=== PATIENT | female | born 1945 | race Caucasian/White ===

== ENCOUNTER 2016-11-23 09:30 | Inpatient (IN) | payer OTHER, MEDICARE ==
[~2016-11-23] VITALS: Ht 162.6 cm; Wt 80.9 kg
[~2016-11-23 09:30] MED LIST: REMOVE OLD PATCH TD SCH
[2016-11-27] MEDS ORDERED: LEVO25TA4 PO (16:45)
[2016-11-27] MEDS ORDERED: RANI150T PO (16:45)
[2016-11-27] MEDS ORDERED: DIAZ10TA PO (16:45)
[2016-11-27] MEDS ORDERED: NIFE60TA58 PO (16:45)
[2016-11-27] MEDS ORDERED: LOSA50TA PO (16:45)
[2016-11-29] MEDS ORDERED: TOPR50TA PO (11:48)
[2016-11-29] MEDS ORDERED: CYCL1TAB29 PO (11:49)
[2016-11-29] MEDS ORDERED: HYDR-3583 PO (11:49)
[2016-11-29] MEDS ORDERED: VIVE0.1D T-DERMAL (11:50)
[2016-11-29] MEDS ORDERED: WELC625T2 PO (11:52)
[2016-11-29] MEDS ORDERED: CLON0.1T PO (11:52)
[2016-11-30] MEDS ORDERED: PROPOFOL 200 MG/20 ML AMP IV ONE (10:36)
[2016-11-30] MEDS ORDERED: NEOSTIGMINE 3 MG/3 ML SYR IV ONE (10:36)
[2016-11-30] MEDS ORDERED: LACTATED RINGER'S 1000 ML INJ 1,000 ML IV ONE (10:36)
[2016-11-30] MEDS ORDERED: ONDANSETRON HCL 4 MG/2 ML VIAL IV PUSH ONE (10:36)
[2016-11-30] MEDS ORDERED: ceFAZolin 2 GM PREMIX 50 ML ONE (11:42)
[2016-11-30] MEDS ORDERED: METOPROLOL TARTRATE 25 MG TAB PO PRN (11:45)
[2016-11-30] MEDS ORDERED: INSULIN HUMAN REGULAR 1,000 UNITS/10 ML VIAL SQ PRN (11:45)
[2016-11-30] MEDS ORDERED: SODIUM CHLORID 0.9% 500 ML IV SCH (12:00)
[2016-11-30] MEDS: LACTATED RINGER'S 1000 ML IV SCH (12:00)
[2016-11-30] MEDS: POVIDONE IODINE 7.5% SCRUB 118 ML BOTTLE TOP SCH (12:00)
[2016-11-30] MEDS ORDERED: ceFAZolin 2 GM PREMIX 50 ML IV SCH (12:00)
[2016-11-30] MEDS ORDERED: MIDAZOLAM HCL 5 MG/5 ML VIAL ONE (12:19)
[2016-11-30] MEDS ORDERED: BUPIVACAINE HCL PF 0.25% 30 ML VIAL NB ONE (12:23)
[2016-11-30] MEDS ORDERED: BUPIVACAINE HCL PF 0.5% 30 ML VIAL NB ONE (12:23)
[2016-11-30] MEDS ORDERED: DEXAMETHASONE SOD PHOS PF 10 MG/ML VIAL IV ONE (12:23)
[2016-11-30] MEDS ORDERED: GENTAMICIN SULFATE 80 MG/2 ML VIAL ONE (12:33)
[2016-11-30] MEDS: DEXAMETHASONE SOD PHOS 4 MG/ML VIAL ONE ×2 (12:37→14:13)
[2016-11-30] MEDS ORDERED: fentaNYL CITRATE 250 MCG/5 ML AMP ONE (13:13)
[2016-11-30] MEDS ORDERED: BUPIVACAINE HCL PF 0.25% 30 ML VIAL ONE (13:51)
[2016-11-30] MEDS ORDERED: DEXAMETHASONE SOD PHOS 4 MG/ML VIAL ONE (13:53)
[2016-11-30] MEDS ORDERED: GENTAMICIN SULFATE 80 MG/2 ML VIAL IRRIGATION ONE (14:13)
[2016-11-30] MEDS ORDERED: *MEPERIDINE 25 MG INJ VIAL PERIprocedural Use ONLY ONE (15:57)
[2016-11-30] MEDS ORDERED: TEMAZEPAM 15 MG CAP PO PRN (16:00)
[2016-11-30] MEDS ORDERED: NALOXONE HCL 0.4 MG/ML AMP IV PRN ×2 (16:00)
[2016-11-30] MEDS ORDERED: POVIDONE IODINE 10% SOLN 118 ML BOTTLE TOPICAL PRN (16:00)
[2016-11-30] MEDS ORDERED: Post-op Orders (for Pharmacy) MISC XX ONE (16:00)
[2016-11-30] MEDS ORDERED: ONDANSETRON HCL 4 MG/2 ML VIAL IVP PRN (16:00)
[2016-11-30] MEDS ORDERED: SODIUM CHLORIDE 0.9% FLUSH 5 ML FLUSH IVF PRN (16:00)
[2016-11-30] MEDS ORDERED: ACETAMINOPHEN 325 MG TAB PO PRN (16:00)
[2016-11-30] MEDS ORDERED: *HYDROmorphone PF 1 MG VIAL PERIprocedural Use ONLY ONE (16:01)
[2016-11-30] MEDS ORDERED: HYDROmorphone HCL PF 1 MG/ML VIAL IV PUSH PRN (16:30)
--- NOTE | 2016-11-30 16:37 | RADRPT ---
EXAM DATE/TIME: 11/30/2016 16:10 [place] COMPARISON: FLUOROSCOPY PORTABLE UP TO 1HR, October 26, 2014, 0:00. INDICATIONS : Post op right knee surgery. MEDICAL HISTORY : None. SURGICAL HISTORY : None. ENCOUNTER: Initial ACUITY: 1 day PAIN SCORE: 0/10 LOCATION: Right Knee. FINDINGS: Two view examination of the left knee demonstrates no evidence of fracture or dislocation. The postsu rgical changes related to total knee arthroplasty. Bony mineralization is normal. The suprapatellar soft tissues have a normal configuration. CONCLUSION: Status post total left knee arthroplasty. Alignment of the prosthesis. No complicatin g features are seen. Nancy Landaverde MD on November 30, 2016 at 16:35 Board Certified Radiologist. This report was verified electronically.
[2016-11-30 16:48] LABS: HEMATOCRIT 35.1 % (35.0-46.0); REVIEW FLAG FINAL
[2016-11-30 17:02] VITALS: BP 137/78; PULSE 70; RESP 16; TEMP 97.9; O2SAT 98
[2016-11-30] MEDS: diphenhydrAMINE HCL 25 MG CAP PO PRN ×2 (18:03→23:39)
[2016-11-30] MEDS ORDERED: cloNIDine HCL 0.1 MG TAB PO PRN (18:15)
--- NOTE | 2016-11-30 18:27 | PD.CONS ---
HPI Service [facility] Consult Requested By Dr. Vasquez Reason for Consult Medical management Primary Care Physician Rebekah Le DO Diagnoses: (1) HTN (hypertension) History of Present Illness Patient is a pleasant 71-year-old white female with primary medical history of hypertension, GERD, back pain, neck pain, depression, hypothyroidism, renal stenosis who came in for surgery. Patient is status post left total knee replacement today. Consulted for medical management. Patient seen. Reports she is doing well, minor discomfort otherwise "really feeling fine." Confirmed previous medical history and added reports that she has renal stenosis, some ischemic stroke previously, and also blocked carotid arteries 51%, 30%. Complains of mild itching. Requesting for Benadryl. Denies SOB/ dyspnea. Denies chestpain, palpitations, headaches, dizziness. Denies fevers, chills, n/v /d. Review of Systems Constitutional: DENIES: Fever, Chills, Change in appetite Endocrine: DENIES: Heat/cold intolerance Eyes: DENIES: Blurred vision, Eye pain Other Negative except for what is noted on history of present illness. Past Family Social History Allergies: Coded Allergies: Morphine (Verified Allergy, Severe, itching, 11/30/16) Codeine (Verified Allergy, Unknown, 11/30/16) Ultram (Verified Allergy, Unknown, 11/30/16) Vistaril (Verified Allergy, Unknown, 11/30/16) Past Medical History HTN GERD Back pain Neck pain Depression Hypothyroidism Renal stenosis Ischemic strokes Carotid artery stenosis Past Surgical History Cardiac catheter Total hysterectomy Spinal fusions Cervical fusion Reported Medications Losartan 50 mg twice a day Diazepam 10 mg when necessary Metoprolol 50 mg ER twice a day WelChol 3750 mg daily Clonidine 2.5 mg when necessary for greater than 160 SBP Flexeril 10 mg 3 times a day when necessary Nifedipine ER 60 mg by mouth twice a day Estradiol 0.1 mg every 24 hours patch Zantac 150 milligrams daily Levothyroxine 25 mg daily Hydrocodone acetaminophen 10/325 milligrams 1 tab every 6 hours when necessary Active Ordered Medications Current Medications Medications (Trade) Dose Ordered Sig/Vannessa Route Start Time Stop Time Status Last Admin Lactated Ringer's 1,000 ml @ 30 mls/hr Q24H IV 11/30/16 12:00 11/30/16 12:00 (NS 500 ml Inj) 500 ml @ 30 mls/hr [id number] IV 11/30/16 12:00 12/01/16 11:59 (Betadine 7.5% Scrub) 1 applic ONCE TOP 11/30/16 12:00 12/03/16 11:59 (NS Flush) 2 ml UNSCH PRN IVF 11/30/16 16:00 IV Flush 2 ml 2 ml BID IVF 11/30/16 21:00 (Ancef Inj/NS Inj) 100 ml @ 200 mls/hr Q6H IV 11/30/16 18:00 12/01/16 06:29 (Lovenox Inj) 40 mg Q24H SQ 12/01/16 04:00 (Dilaudid Pf Inj) 0.5 mg Q3H PRN IV PUSH 11/30/16 16:30 ([place] 7.5-325 Mg) 1 tab Q4H PRN PO 11/30/16 16:00 (Theragran M Tab) 1 tab BID PO 12/01/16 21:00 01/30/17 20:59 (Zofran Inj) 4 mg Q6H PRN IVP 11/30/16 16:00 (Restoril) 15 mg HS PRN PO 11/30/16 16:00 (Narcan Inj) 0.4 mg UNSCH PRN IV 11/30/16 16:00 (Dilaudid TELERADIOLOGIST Inj) 6 mg UNSCH IV 11/30/16 16:00 TELERADIOLOGIST Dosage Infused (Pha) 1 Q8HR OTHER 11/30/16 22:00 (Benadryl) 25 mg Q6H PRN PO 11/30/16 18:00 UNV Family History Heart disease Father of stroke Mother of heart attack in her 70s Social History Denies alcohol use Former smoker quit 9 years ago, smokes occasionally 1 to 3 cigarettes, last time she smoked was a week ago Denies illicit drug use Physical Exam Vital Signs Vital Signs Date Time Temp Pulse Resp B/P Pulse Ox O2 Delivery O2 Flow Rate FiO2 11/30/16 17:02 97.9 70 16 137/78 98 11/30/16 16:30 65 16 142/73 96 Nasal Cannula 2 11/30/16 16:15 59 16 150/65 95 Nasal Cannula 2 11/30/16 16:00 61 16 171/63 99 Nasal Cannula 2 11/30/16 15:55 98.4 85 16 181/72 99 Nasal Cannula 2 Physical Exam GENERAL: This is a well-nourished, well-developed patient, in no apparent distress. SKIN: No rashes, ecchymoses or lesions. Cool and dry. HEAD: Atraumatic. Normocephalic. No temporal or scalp tenderness. EYES: Pupils equal round and reactive. Extraocular motions intact. No scleral icterus. No injection or drainage. ENT: Nose without bleeding. Throat without erythema. Uvula midline. Airway patent. NECK: Trachea midline. No JVD or lymphadenopathy. Supple. CARDIOVASCULAR: Regular rate and rhythm without murmurs, gallops, or rubs. RESPIRATORY: Clear to auscultation. Breath sounds equal bilaterally. No wheezes , rales, or rhonchi. GASTROINTESTINAL: Abdomen soft, non-tender, nondistended. Bowel sounds hypoactive 4. MUSCULOSKELETAL: Extremities without clubbing, cyanosis, left lower extremity trace edema. Left knee Alessandro wrap in place, autotransfusion drain serous blood approx 100ml, left leg on CPM machine. NEUROLOGICAL: Awake and alert. Oriented 3. Motor and sensory grossly within normal limits. No focal neuro deficit. Normal speech. Laboratory Laboratory Tests Test 11/30/16 11/30/16 11:55 16:38 Blood Type O POSITIVE Antibody Screen NEGATIVE Crossmatch Leukocyte-Reduced Red Blood Cells Blood Bank Comment Hemoglobin 12.0 Hematocrit 35.1 Result Diagram: 11/30/16 1638 Imaging Last Impressions Knee X-Ray 11/30/16 0000 Signed Impressions: Service Date/Time: Wednesday, November 30, 2016 16:10 - CONCLUSION: Status post total left knee arthroplasty. Alignment of the prosthesis. No complicating features are seen. Nancy Landaverde MD Assessment and Plan Problem List: (1) HTN (hypertension) ICD Code: I10 Status: Acute (2) Hypothyroidism ICD Code: E03.9 Status: Acute (3) GERD (gastroesophageal reflux disease) ICD Code: K21.9 Status: Acute Assessment and Plan Patient is a pleasant 71-year-old white female with primary medical history of hypertension, GERD, back pain, neck pain, depression, hypothyroidism, renal stenosis who came in for surgery. Patient is status post left total knee replacement 11/30/15. Consulted for medical management. Status post left knee replacement - managed by Orthopedic service - Pain management - TELERADIOLOGIST - Physical therapy by primary team HTN - Will restart some of the patient's home meds - Will continue losartan 50mg twice a day, and clonidine when necessary for now, will check if BP trend if metoprolol 50 mg twice a day, nifedipine 60 mg twice a day can be restarted. Recent BP 137/78 - Monitor BP trend - Baseline BMP within normal. Will recheck tomorrow. Hypothyroidism - continue levothyroxine 25 mcg daily GERD - restart Zantac Itching - Benadryl when necessary DVT prop Lovenox Thank you for this consultation. We will follow patient with you. Written by Morena Rockwell, acting as scribe for Dr. Torres on 11/30/16 at 17: 58. patient was seen and examined today. s/p left total knee replacement. continue with post-op care. will monitor BP and adjust the regimen as needed. rest of assessment and plan as noted above. Code Status Full code Discussed Condition With Patient, nursing. Morena Bullard Nov 30, 2016 18:27 Rosy Prado MD Nov 30, 2016 18:35
[2016-11-30] MEDS ORDERED: PILL SPLITTER OTHER PRN (19:15)
[2016-11-30] MEDS: COLESEVELAM HCL 625 MG TAB PO SCH (20:00)
[2016-11-30 20:18] VITALS: BP 132/62; PULSE 66; RESP 16; TEMP 95.7; O2SAT 98
[2016-11-30] MEDS: FAMOTIDINE 20 MG TAB PO SCH (20:40)
[2016-11-30] MEDS: LOSARTAN 50 MG TAB PO SCH (20:40)
[2016-11-30] MEDS: SODIUM CHLORIDE 0.9% FLUSH 5 ML FLUSH IVF SCH (20:41)
[2016-11-30] MEDS: PCA - TOTAL MG DILAUDID DELIVERED PER SHIFT OTHER SCH (22:00)
[2016-11-30] MEDS ORDERED: PCA - TOTAL MG MORPHINE DELIVERED PER SHIFT SCH (22:00)
[2016-11-30 23:45] VITALS: BP 180/74
[2016-11-30] MEDS: cloNIDine HCL 0.1 MG TAB PO PRN (23:50)
[2016-12-01] VITALS (9 sets, daily range): BP systolic 133–169; BP diastolic 63–74; PULSE 69–96; RESP 16–18; TEMP 96.2–99.6; O2SAT 95–98
[2016-12-01] MEDS: ENOXAPARIN SODIUM 40 MG/0.4 ML SYRINGE SQ SCH (04:09)
[2016-12-01] MEDS: LEVOTHYROXINE SODIUM 25 MCG TAB PO SCH (04:09)
[2016-12-01] MEDS: diphenhydrAMINE HCL 25 MG CAP PO PRN ×3 (05:14→22:51)
[2016-12-01] MEDS: PCA - TOTAL MG DILAUDID DELIVERED PER SHIFT OTHER SCH ×2 (07:27→20:46)
[2016-12-01 08:04] LABS: BICARBONATE 26.8 MEQ/L (21.0-32.0)
[2016-12-01 08:09] LABS: POTASSIUM 4.8 MEQ/L (3.5-5.1)
[2016-12-01] MEDS: SODIUM CHLORIDE 0.9% FLUSH 5 ML FLUSH IVF SCH ×2 (09:00→20:43)
[2016-12-01] MEDS: FAMOTIDINE 20 MG TAB PO SCH ×2 (09:20→20:41)
[2016-12-01] MEDS: LOSARTAN 50 MG TAB PO SCH ×2 (09:20→20:42)
[2016-12-01] MEDS: COLESEVELAM HCL 625 MG TAB PO SCH (09:21)
[2016-12-01] MEDS: HYDROmorphone HCL PCA 6 MG/30 ML IV SCH (09:33)
--- NOTE | 2016-12-01 11:23 | HHI.PR ---
Subjective Remarks in no distress. pain is fairly controlled. no other new complaints. Objective Vitals Vital Signs Date Time Temp Pulse Resp B/P Pulse Ox O2 Delivery O2 Flow Rate FiO2 12/01/16 10:50 98 Partial Rebreather 15.00 12/01/16 10:41 98 21 12/01/16 09:33 15 12/01/16 08:00 97.8 80 16 133/63 95 12/01/16 07:27 20 12/01/16 05:06 96 21 12/01/16 04:17 97.5 71 16 144/67 97 12/01/16 00:10 96.2 69 17 96 11/30/16 23:45 180/74 11/30/16 22:00 20 11/30/16 20:18 95.7 66 16 132/62 98 11/30/16 17:02 97.9 70 16 137/78 98 11/30/16 16:30 65 16 142/73 96 Nasal Cannula 2 11/30/16 16:15 59 16 150/65 95 Nasal Cannula 2 11/30/16 16:00 61 16 171/63 99 Nasal Cannula 2 11/30/16 15:55 98.4 85 16 181/72 99 Nasal Cannula 2 I/O 11/30/16 11/30/16 11/30/16 12/01/16 12/01/16 12/01/16 07:00 15:00 23:00 07:00 15:00 23:00 Intake Total 2833 ml 720 ml Output Total 300 ml Balance 2533 ml 720 ml Intake Oral 720 ml 720 ml IV Total 763 ml Other 1350 ml Output Drainage Total 200 ml Estimated Blood Loss 100 ml Other 0 ml # Voids 1 2 # Bowel Movements 0 0 Result Diagram: 11/30/16 1638 12/01/16 0622 Imaging Last Impressions Knee X-Ray 11/30/16 0000 Signed Impressions: Service Date/Time: Wednesday, November 30, 2016 16:10 - CONCLUSION: Status post total left knee arthroplasty. Alignment of the prosthesis. No complicating features are seen. Nancy Landaverde MD Objective Remarks GENERAL: This is a well-nourished, well-developed patient, in no apparent distress. CARDIOVASCULAR: Regular rate and regular rhythm without murmurs, gallops, or rubs. RESPIRATORY: Clear to auscultation. Breath sounds equal bilaterally. No wheezes , rales, or rhonchi. GASTROINTESTINAL: Abdomen soft, non-tender, nondistended. Normal, active bowel sounds MUSCULOSKELETAL:left knee covered with clean dressing. NEURO: Alert & Oriented x4 to person, place, time, situation. Moves all ext x4 Medications and IVs Current Medications Lactated Ringer's 1,000 ml @ 30 mls/hr Q24H IV Last administered on 11/30/16 12:00; Start 11/30/16 at 12:00 Sodium Chloride (NS 500 ml Inj) 500 ml @ 30 mls/hr [id number] IV ; Start 11/30/16 at 12:00; Stop 12/01/16 at 11:59 Insulin Human Regular (NovoLIN R INJ) See Protocol Table ... UNSCH X1 PRN SQ SEE PROTOCOL; Start 11/30/16 at 11:45; Stop 12/01/16 at 11:44 Metoprolol Tartrate 25 mg 25 mg UNSCH X1 PRN PO SEE LABEL COMMENTS; Start 11/30 at 11:45; Stop 12/01/16 at 11:44 Cefazolin Sodium/ Dextrose (Ancef 2 Gm Premix) 50 ml @ As Directed STK-MED ONCE .ROUTE Last administered on 11/30/16 12:02; Start 11/30/16 at 11:42; Stop at 11:43; Status DC Povidone Iodine 1 applic 1 applic ONCE TOP ; Start 11/30/16 at 12:00; Stop 12/03 at 11:59 Cefazolin Sodium/ Dextrose (Ancef 2 Gm Premix) 50 ml @ 100 mls/hr REFRACTORY REPAIRER IV ; Start 11/30/16 at 12:00; Stop 12/03/16 at 11:59 Midazolam HCl (Versed Inj) 10 mg STK-MED ONCE .ROUTE Last administered on 12:29; Start 11/30/16 at 12:19; Stop 11/30/16 at 12:20; Status DC Dexamethasone Sodium Phosphate (Decadron Inj) 4 mg STK-MED ONCE .ROUTE Last administered on 11/30/16 14:13; Start 11/30/16 at 12:19; Stop 11/30/16 at 12:20 ; Status DC Gentamicin Sulfate (Gentamicin Inj) 240 mg STK-MED ONCE .ROUTE ; Start 11/30/16 at 12:33; Stop 11/30/16 at 12:34; Status DC Fentanyl Citrate (fentaNYL INJ) 250 mcg STK-MED ONCE .ROUTE ; Start 11/30/16 at 13:13; Stop 11/30/16 at 13:14; Status DC Bupivacaine HCl (Marcaine Pf 0.25% Inj) 30 ml STK-MED ONCE .ROUTE Last administered on 11/30/16 14:23; Start 11/30/16 at 13:51; Stop 11/30/16 at 13:52 ; Status DC Dexamethasone Sodium Phosphate (Decadron Inj) 4 mg STK-MED ONCE .ROUTE ; Start 11/30/16 at 13:53; Stop 11/30/16 at 13:54; Status DC Gentamicin Sulfate (Gentamicin Inj) 240 mg STK-MED ONCE IRRIGATION Last administered on 11/30/16 14:13; Start 11/30/16 at 14:13; Stop 11/30/16 at 14:27 ; Status DC Meperidine HCl (*DEMEROL INJ PERIprocedural ONLY) 25 mg STK-MED ONCE .ROUTE Last administered on 11/30/16 15:57; Start 11/30/16 at 15:57; Stop 11/30/16 at 15:58; Status DC Hydromorphone HCl (*DILAUDID PF INJ PERIprocedural ONLY) 1 mg STK-MED ONCE .ROUTE Last administered on 11/30/16 16:01; Start 11/30/16 at 16:01; Stop at 16:02; Status DC IV Flush (NS Flush) 2 ml UNSCH PRN IVF FLUSH AFTER USING IV ACCESS; Start 11/30 at 16:00 IV Flush 2 ml 2 ml BID IVF Last administered on 11/30/16 20:41; Start at 21:00 Cefazolin Sodium/ Sodium Chloride (Ancef Inj/NS Inj) 100 ml @ 200 mls/hr Q6H IV Last administered on 12/01/16 04:09; Start 11/30/16 at 18:00; Stop at 06:29; Status DC Miscellaneous Information (Post-op Orders (for Pharmacy)) STAT ONCE XX ; Start 11/30/16 at 16:00; Stop 11/30/16 at 16:39; Status DC Enoxaparin Sodium (Lovenox Inj) 40 mg Q24H SQ Last administered on 12/01/16 04 :09; Start 12/01/16 at 04:00 Hydromorphone HCl (Dilaudid Pf Inj) 0.5 mg Q3H PRN IV PUSH PAIN GREATER THAN 7 ; Start 11/30/16 at 16:30 Acetaminophen/ Hydrocodone Bitart ([place]ard 7.5-325 Mg) 1 tab Q4H PRN PO PAIN SCALE 1 TO 10; Start 11/30/16 at 16:00 Acetaminophen (Tylenol) 650 mg Q6H PRN PO PAIN LESS THAN 5 ON SCALE; Start at 16:00; Status UNV Multivitamins/ Minerals Therapeutic (Theragran M Tab) 1 tab BID PO ; Start 12/01 at 21:00; Stop 01/30/17 at 20:59 Ondansetron HCl (Zofran Inj) 4 mg Q6H PRN IVP NAUSEA OR VOMITING; Start at 16:00 Temazepam (Restoril) 15 mg HS PRN PO SLEEP; Start 11/30/16 at 16:00 Povidone Iodine (Betadine 10% Top Soln) 1 applic UNSCH X1 PRN TOPICAL WOUND CARE; Start 11/30/16 at 16:00; Stop 12/02/16 at 15:59 Naloxone HCl (Narcan Inj) 0.4 mg UNSCH PRN IV RESPIRATORY RATE LESS THAN 10; Start 11/30/16 at 16:00; Stop 11/30/16 at 16:16; Status DC MEN[employer]S [employer] BO[employer] SALESPERSON Dosage Infused (Pha) 1 Q8HR .XX ; Start 11/30/16 at 22:00; Status UNV Naloxone HCl (Narcan Inj) 0.4 mg UNSCH PRN IV RESPIRATORY RATE LESS THAN 10; Start 11/30/16 at 16:00 Hydromorphone HCl (Dilaudid [employer] BO[employer] SALESPERSON Inj) 6 mg UNSCH IV Last administered on 09:33; Start 11/30/16 at 16:00 M[employer]S [employer] BO[employer]OTH[employer] SALESPERSON Dosage Infused (Pha) 1 Q8HR OTHER Last administered on 12/01/16 07:27; Start 11/30/16 at 22:00 Diphenhydramine HCl (Benadryl) 25 mg Q6H PRN PO ITCHING Last administered on 09:28; Start 11/30/16 at 18:00 Clonidine (Catapres) 0.1 mg DAILY PRN PO BPM; Start 11/30/16 at 18:15; Stop at 19:15; Status DC Colesevelam HCl (Welchol) 3,750 mg DAILY@1000 PO Last administered on 09:21; Start 11/30/16 at 20:00 Levothyroxine Sodium (Synthroid) 25 mcg DAILY@06 PO Last administered on 04:09; Start 12/01/16 at 06:00 Losartan Potassium (Cozaar) 50 mg BID PO Last administered on 12/01/16 09:20; Start 11/30/16 at 21:00 Famotidine (Pepcid) 10 mg BID PO Last administered on 12/01/16 09:20; Start at 21:00 Clonidine (Catapres) 0.1 mg Q8HR PRN PO SBP> 180 OR DBP > 100 Last administered on 11/30/16 23:50; Start 11/30/16 at 22:00 Miscellaneous (Pill Splitter) 1 ea UNSCH PRN OTHER SEE LABEL COMMENTS; Start at 19:15 A/P Assessment and Plan Status post left knee replacement - managed by Orthopedic service - Pain management - - Physical therapy by primary team HTN - Will restart some of the patient's home meds - Will continue losartan 50mg twice a day, and clonidine when necessary for now- will resume her BB at a lower dose. - continue to monitor BP and adjust the regimen as needed. Hypothyroidism - continue levothyroxine 25 mcg daily GERD - restart Zantac Itching - Benadryl when necessary DVT prop Rosy Johnson MD Dec 01, 2016 11:22
--- NOTE | 2016-12-01 11:31 | PD.ORT.PN ---
Subjective Subjective Remarks pt comfortable as long as she is using her pain pump. Objective Vitals Vital Signs Date Time Temp Pulse Resp B/P Pulse Ox O2 Delivery O2 Flow Rate FiO2 12/01/16 10:50 98 Partial Rebreather 15.00 12/01/16 10:41 98 21 12/01/16 09:33 15 12/01/16 08:00 97.8 80 16 133/63 95 12/01/16 07:27 20 12/01/16 05:06 96 21 12/01/16 04:17 97.5 71 16 144/67 97 12/01/16 00:10 96.2 69 17 96 11/30/16 23:45 180/74 11/30/16 22:00 20 11/30/16 20:18 95.7 66 16 132/62 98 11/30/16 17:02 97.9 70 16 137/78 98 11/30/16 16:30 65 16 142/73 96 Nasal Cannula 2 11/30/16 16:15 59 16 150/65 95 Nasal Cannula 2 11/30/16 16:00 61 16 171/63 99 Nasal Cannula 2 11/30/16 15:55 98.4 85 16 181/72 99 Nasal Cannula 2 I/O 11/30/16 11/30/16 11/30/16 12/01/16 12/01/16 12/01/16 07:00 15:00 23:00 07:00 15:00 23:00 Intake Total 2833 ml 720 ml Output Total 300 ml Balance 2533 ml 720 ml Intake Oral 720 ml 720 ml IV Total 763 ml Other 1350 ml Output Drainage Total 200 ml Estimated Blood Loss 100 ml Other 0 ml # Voids 1 2 # Bowel Movements 0 0 Result Diagram: 11/30/16 1638 12/01/16 0622 Objective Remarks Dressing dry and intact. Blocks still working. No calf tenderness. Assessment & Plan Ortho Post Op Day #: 1 Problem List: Assessment and Plan OOB, PT, DC hemovac tomorrow. 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 Timothy Travis MD Dec 01, 2016 11:31
[2016-12-01] MEDS: LACTATED RINGER'S 1000 ML IV SCH (12:00)
[2016-12-01] MEDS: POVIDONE IODINE 7.5% SCRUB 118 ML BOTTLE TOP SCH (12:00)
[2016-12-01] MEDS: CYCLOBENZAPRINE HCL 10 MG TAB PO PRN (16:11)
[2016-12-01] MEDS: ACETAMINOPHEN/HYDROcodone 325 MG/7.5 MG TAB PO PRN ×2 (16:12→22:51)
[2016-12-01] MEDS ORDERED: DIAZEPAM 10 MG TAB PO PRN (19:15)
[2016-12-01] MEDS: MULTIVITAMINS/MINERALS THERAPEUTIC TAB PO SCH (20:42)
[2016-12-01] MEDS ORDERED: METOPROLOL SUCCINATE 25 MG EXTENDED RELEASE TAB PO SCH (21:00)
[2016-12-01] MEDS: cloNIDine HCL 0.1 MG TAB PO PRN (23:12)
[2016-12-02] VITALS (7 sets, daily range): BP systolic 125–180; BP diastolic 57–72; PULSE 78–93; RESP 17–18; TEMP 97–100; O2SAT 95–98
[2016-12-02 05:12] LABS: HEMATOCRIT 22.2 % (35.0-46.0); REVIEW FLAG FINAL
[2016-12-02] MEDS: ENOXAPARIN SODIUM 40 MG/0.4 ML SYRINGE SQ SCH (05:16)
[2016-12-02] MEDS: PCA - TOTAL MG DILAUDID DELIVERED PER SHIFT OTHER SCH ×3 (05:16→22:00)
[2016-12-02] MEDS: METOPROLOL SUCCINATE 25 MG EXTENDED RELEASE TAB PO SCH ×2 (05:41→17:50)
[2016-12-02] MEDS: LEVOTHYROXINE SODIUM 25 MCG TAB PO SCH (05:41)
[2016-12-02] MEDS ORDERED: ESTRADIOL 0.1 MG/24 HR PATCH TD SCH (09:00)
--- NOTE | 2016-12-02 09:23 | PD.ORT.PN ---
Subjective Subjective Remarks pt comfortable as long as she is using her pain pump. She did not tolerate PO pain meds well yesterday. Objective Vitals Vital Signs Date Time Temp Pulse Resp B/P Pulse Ox O2 Delivery O2 Flow Rate FiO2 12/02/16 07:48 99.7 78 18 125/57 96 12/02/16 05:16 18 12/02/16 04:30 97.7 78 17 131/62 96 12/02/16 00:10 100.0 93 18 180/72 96 12/01/16 20:25 99.3 96 18 169/71 97 12/01/16 17:12 20 12/01/16 16:00 99.6 89 18 152/67 97 12/01/16 12:00 98.3 79 16 166/74 97 12/01/16 10:41 98 21 12/01/16 09:33 15 I/O 12/01/16 12/01/16 12/01/16 12/02/16 12/02/16 12/02/16 07:00 15:00 23:00 07:00 15:00 23:00 Intake Total 720 ml 1462 ml 360 ml 240 ml Output Total 20 ml 10 ml 5 ml Balance 720 ml 1442 ml 350 ml 235 ml Intake Oral 720 ml 480 ml 360 ml 240 ml IV Total 982 ml Output Drainage Total 20 ml 10 ml 5 ml # Voids 2 5 6 2 # Bowel Movements 0 0 0 0 Result Diagram: 12/02/16 0355 12/01/16 0622 Objective Remarks Dressing dry and intact. Blocks no longer working. No calf tenderness. Assessment & Plan Ortho Post Op Day #: 2 Problem List: Assessment and Plan OOB, PT, repeat CBC as Hg 7.7 now. If under 8, suggest 2 units if VS diminished. Watch temp. Medical management. Timothy Travis MD Dec 02, 2016 09:22
[2016-12-02] MEDS: diphenhydrAMINE HCL 25 MG CAP PO PRN (09:43)
[2016-12-02] MEDS: SODIUM CHLORIDE 0.9% FLUSH 5 ML FLUSH IVF SCH ×2 (09:44→22:32)
[2016-12-02] MEDS: COLESEVELAM HCL 625 MG TAB PO SCH (09:44)
[2016-12-02] MEDS: LOSARTAN 50 MG TAB PO SCH ×2 (09:44→22:29)
[2016-12-02] MEDS: FAMOTIDINE 20 MG TAB PO SCH ×2 (09:44→22:31)
[2016-12-02] MEDS: MULTIVITAMINS/MINERALS THERAPEUTIC TAB PO SCH ×2 (09:44→22:29)
--- NOTE | 2016-12-02 11:53 | HHI.PR ---
Subjective Remarks overall doing fine. no chest pain or sob. no dizziness. low grade fever earlier. Objective Vitals Vital Signs Date Time Temp Pulse Resp B/P Pulse Ox O2 Delivery O2 Flow Rate FiO2 12/02/16 07:48 99.7 78 18 125/57 96 12/02/16 05:16 18 12/02/16 04:30 97.7 78 17 131/62 96 12/02/16 00:10 100.0 93 18 180/72 96 12/01/16 20:25 99.3 96 18 169/71 97 12/01/16 17:12 20 12/01/16 16:00 99.6 89 18 152/67 97 12/01/16 12:00 98.3 79 16 166/74 97 I/O 12/01/16 12/01/16 12/01/16 12/02/16 12/02/16 12/02/16 07:00 15:00 23:00 07:00 15:00 23:00 Intake Total 720 ml 1462 ml 360 ml 240 ml Output Total 20 ml 10 ml 5 ml Balance 720 ml 1442 ml 350 ml 235 ml Intake Oral 720 ml 480 ml 360 ml 240 ml IV Total 982 ml Output Drainage Total 20 ml 10 ml 5 ml # Voids 2 5 6 2 # Bowel Movements 0 0 0 0 Result Diagram: 12/02/16 0355 12/01/16 0622 Imaging Last Impressions Knee X-Ray 11/30/16 0000 Signed Impressions: Service Date/Time: Wednesday, November 30, 2016 16:10 - CONCLUSION: Status post total left knee arthroplasty. Alignment of the prosthesis. No complicating features are seen. Nancy Landaverde MD Objective Remarks GENERAL: This is a well-nourished, well-developed patient, in no apparent distress. CARDIOVASCULAR: Regular rate and regular rhythm without murmurs, gallops, or rubs. RESPIRATORY: Clear to auscultation. Breath sounds equal bilaterally. No wheezes , rales, or rhonchi. GASTROINTESTINAL: Abdomen soft, non-tender, nondistended. Normal, active bowel sounds MUSCULOSKELETAL:left knee covered with clean dressing. NEURO: Alert & Oriented x4 to person, place, time, situation. Moves all ext x4 Medications and IVs Current Medications Lactated Ringer's 1,000 ml @ 30 mls/hr Q24H IV Last administered on 1/13/17at 12:00; Start 11/30/16 at 12:00 Sodium Chloride (NS 500 ml Inj) 500 ml @ 30 mls/hr [id number] IV ; Start 11/30/16 at 12:00; Stop 12/01/16 at 11:59; Status DC Insulin Human Regular (NovoLIN R INJ) See Protocol Table ... UNSCH X1 PRN SQ SEE PROTOCOL; Start 11/30/16 at 11:45; Stop 12/01/16 at 11:44; Status DC Metoprolol Tartrate 25 mg 25 mg UNSCH X1 PRN PO SEE LABEL COMMENTS; Start 11/30 at 11:45; Stop 12/01/16 at 11:44; Status DC Cefazolin Sodium/ Dextrose (Ancef 2 Gm Premix) 50 ml @ As Directed STK-MED ONCE .ROUTE Last administered on 11/30/16 12:02; Start 11/30/16 at 11:42; Stop at 11:43; Status DC Povidone Iodine 1 applic 1 applic ONCE TOP ; Start 11/30/16 at 12:00; Stop 12/03 at 11:59 Cefazolin Sodium/ Dextrose (Ancef 2 Gm Premix) 50 ml @ 100 mls/hr ICU MANAGER IV ; Start 11/30/16 at 12:00; Stop 12/03/16 at 11:59 Midazolam HCl (Versed Inj) 10 mg STK-MED ONCE .ROUTE Last administered on 12:29; Start 11/30/16 at 12:19; Stop 11/30/16 at 12:20; Status DC Dexamethasone Sodium Phosphate (Decadron Inj) 4 mg STK-MED ONCE .ROUTE Last administered on 11/30/16 14:13; Start 11/30/16 at 12:19; Stop 11/30/16 at 12:20 ; Status DC Gentamicin Sulfate (Gentamicin Inj) 240 mg STK-MED ONCE .ROUTE ; Start 11/30/16 at 12:33; Stop 11/30/16 at 12:34; Status DC Fentanyl Citrate (fentaNYL INJ) 250 mcg STK-MED ONCE .ROUTE ; Start 11/30/16 at 13:13; Stop 11/30/16 at 13:14; Status DC Bupivacaine HCl (Marcaine Pf 0.25% Inj) 30 ml STK-MED ONCE .ROUTE Last administered on 11/30/16 14:23; Start 11/30/16 at 13:51; Stop 11/30/16 at 13:52 ; Status DC Dexamethasone Sodium Phosphate (Decadron Inj) 4 mg STK-MED ONCE .ROUTE ; Start 11/30/16 at 13:53; Stop 11/30/16 at 13:54; Status DC Gentamicin Sulfate (Gentamicin Inj) 240 mg STK-MED ONCE IRRIGATION Last administered on 11/30/16 14:13; Start 11/30/16 at 14:13; Stop 11/30/16 at 14:27 ; Status DC Meperidine HCl (*DEMEROL INJ PERIprocedural ONLY) 25 mg STK-MED ONCE .ROUTE Last administered on 11/30/16 15:57; Start 11/30/16 at 15:57; Stop 11/30/16 at 15:58; Status DC Hydromorphone HCl (*DILAUDID PF INJ PERIprocedural ONLY) 1 mg STK-MED ONCE .ROUTE Last administered on 11/30/16 16:01; Start 11/30/16 at 16:01; Stop at 16:02; Status DC IV Flush (NS Flush) 2 ml UNSCH PRN IVF FLUSH AFTER USING IV ACCESS; Start 11/30 at 16:00 IV Flush 2 ml 2 ml BID IVF Last administered on 12/02/16 09:44; Start at 21:00 Cefazolin Sodium/ Sodium Chloride (Ancef Inj/NS Inj) 100 ml @ 200 mls/hr Q6H IV Last administered on 12/01/16 04:09; Start 11/30/16 at 18:00; Stop at 06:29; Status DC Miscellaneous Information (Post-op Orders (for Pharmacy)) STAT ONCE XX ; Start 11/30/16 at 16:00; Stop 11/30/16 at 16:39; Status DC Enoxaparin Sodium (Lovenox Inj) 40 mg Q24H SQ Last administered on 12/02/16 05 :16; Start 12/01/16 at 04:00 Hydromorphone HCl (Dilaudid Pf Inj) 0.5 mg Q3H PRN IV PUSH PAIN GREATER THAN 7 ; Start 11/30/16 at 16:30 Acetaminophen/ Hydrocodone Bitart ([place] 7.5-325 Mg) 1 tab Q4H PRN PO PAIN SCALE 1 TO 10 Last administered on 12/01/16 22:51; Start 11/30/16 at 16:00 Acetaminophen (Tylenol) 650 mg Q6H PRN PO PAIN LESS THAN 5 ON SCALE; Start at 16:00; Status UNV Multivitamins/ Minerals Therapeutic (Theragran M Tab) 1 tab BID PO Last administered on 12/02/16 09:44; Start 12/01/16 at 21:00; Stop 01/30/17 at 20:59 Ondansetron HCl (Zofran Inj) 4 mg Q6H PRN IVP NAUSEA OR VOMITING Last administered on 12/02/16 11:15; Start 11/30/16 at 16:00 Temazepam (Restoril) 15 mg HS PRN PO SLEEP; Start 11/30/16 at 16:00 Povidone Iodine (Betadine 10% Top Soln) 1 applic UNSCH X1 PRN TOPICAL WOUND CARE; Start 11/30/16 at 16:00; Stop 12/02/16 at 15:59 Naloxone HCl (Narcan Inj) 0.4 mg UNSCH PRN IV RESPIRATORY RATE LESS THAN 10; Start 11/30/16 at 16:00; Stop 11/30/16 at 16:16; Status DC CORPORATE SECURITIES RESEARCH ANALYST Dosage Infused (Pha) 1 Q8HR .XX ; Start 11/30/16 at 22:00; Status UNV Naloxone HCl (Narcan Inj) 0.4 mg UNSCH PRN IV RESPIRATORY RATE LESS THAN 10; Start 11/30/16 at 16:00 Hydromorphone HCl (Dilaudid CORPORATE SECURITIES RESEARCH ANALYST Inj) 6 mg UNSCH IV Last administered on 09:33; Start 11/30/16 at 16:00 CORPORATE SECURITIES RESEARCH ANALYST Dosage Infused (Pha) 1 Q8HR OTHER Last administered on 12/02/16 05:16; Start 11/30/16 at 22:00 Diphenhydramine HCl (Benadryl) 25 mg Q6H PRN PO ITCHING Last administered on 09:43; Start 11/30/16 at 18:00 Clonidine (Catapres) 0.1 mg DAILY PRN PO BPM; Start 11/30/16 at 18:15; Stop at 19:15; Status DC Colesevelam HCl (Welchol) 3,750 mg DAILY@1000 PO Last administered on 09:44; Start 11/30/16 at 20:00 Levothyroxine Sodium (Synthroid) 25 mcg DAILY@06 PO Last administered on 05:41; Start 12/01/16 at 06:00 Losartan Potassium (Cozaar) 50 mg BID PO Last administered on 12/02/16 09:44; Start 11/30/16 at 21:00 Famotidine (Pepcid) 10 mg BID PO Last administered on 12/02/16 09:44; Start at 21:00 Clonidine (Catapres) 0.1 mg Q8HR PRN PO SBP> 180 OR DBP > 100 Last administered on 12/01/16 23:12; Start 11/30/16 at 22:00 Miscellaneous (Pill Splitter) 1 ea UNSCH PRN OTHER SEE LABEL COMMENTS; Start at 19:15 Metoprolol Succinate (Toprol Xl) 25 mg BID PO Last administered on 12/01/16 19 :07; Start 12/01/16 at 21:00; Stop 12/01/16 at 21:00; Status DC Cyclobenzaprine HCl (Flexeril) 10 mg TID PRN PO PAIN SCALE 1 TO 10 Last administered on 12/01/16 16:11; Start 12/01/16 at 14:00 Diazepam (Valium) 10 mg Q8H PRN PO ANXIETY; Start 12/01/16 at 19:15 Estradiol ([place] 0.1 Mg Patch.7d) 1 patch [place]@09 TD Last administered on 09:43; Start 12/02/16 at 09:00 Miscellaneous Information 1 Q7D TD ; Start 12/09/15 at 09:00 Metoprolol Succinate (Toprol Xl) 25 mg BID@06,18 PO Last administered on 05:41; Start 12/02/16 at 06:00 A/P Assessment and Plan Status post left knee replacement - managed by Orthopedic service - Pain management - - Physical therapy by primary team HTN - restarted some of the patient's home meds - Will continue losartan 50mg twice a day, and clonidine when necessary for now- resumed her BB at a lower dose. - continue to monitor BP and adjust the regimen as needed. anemia- post-op; will monitor H/H; transfuse if Hb< 7. Hypothyroidism - continue levothyroxine 25 mcg daily GERD - restart Zantac Itching - Benadryl when necessary DVT prop Rosy Johnson MD Dec 02, 2016 11:53
[2016-12-02] MEDS: LACTATED RINGER'S 1000 ML IV SCH (12:00)
[2016-12-02] MEDS: POVIDONE IODINE 7.5% SCRUB 118 ML BOTTLE TOP SCH (12:00)
[2016-12-02 16:28] LABS: HEMATOCRIT 24.9 % (35.0-46.0)
[2016-12-02] MEDS: CYCLOBENZAPRINE HCL 10 MG TAB PO PRN (17:50)
[2016-12-02] MEDS: HYDROmorphone HCL PCA 6 MG/30 ML IV SCH (18:49)
[2016-12-03] VITALS (7 sets, daily range): BP systolic 118–148; BP diastolic 55–66; PULSE 80–90; RESP 16–18; TEMP 97.9–100; O2SAT 92–99
[2016-12-03] MEDS: PCA - TOTAL MG DILAUDID DELIVERED PER SHIFT OTHER SCH ×3 (06:00→21:02)
[2016-12-03 06:14] LABS: HEMATOCRIT 23.3 % (35.0-46.0)
[2016-12-03] MEDS: LEVOTHYROXINE SODIUM 25 MCG TAB PO SCH (06:25)
[2016-12-03] MEDS: ENOXAPARIN SODIUM 40 MG/0.4 ML SYRINGE SQ SCH (06:25)
[2016-12-03] MEDS: METOPROLOL SUCCINATE 25 MG EXTENDED RELEASE TAB PO SCH (06:25)
[2016-12-03] MEDS: SODIUM CHLORIDE 0.9% FLUSH 5 ML FLUSH IVF SCH ×2 (09:00→21:00)
[2016-12-03] MEDS: LOSARTAN 50 MG TAB PO SCH ×2 (09:10→21:01)
[2016-12-03] MEDS: FAMOTIDINE 20 MG TAB PO SCH ×2 (09:10→21:00)
[2016-12-03] MEDS: MULTIVITAMINS/MINERALS THERAPEUTIC TAB PO SCH ×2 (09:10→21:01)
[2016-12-03] MEDS: COLESEVELAM HCL 625 MG TAB PO SCH (09:14)
[2016-12-03] MEDS: LACTATED RINGER'S 1000 ML IV SCH (11:09)
--- NOTE | 2016-12-03 12:31 | HHI.PR ---
Subjective Remarks in no acute distress. pain is controlled. no BM yet. low grade fever earlier. d/w the RN. Objective Vitals Vital Signs Date Time Temp Pulse Resp B/P Pulse Ox O2 Delivery O2 Flow Rate FiO2 12/03/16 08:00 100.0 86 18 118/55 92 12/03/16 06:00 17 12/03/16 04:30 99.8 88 17 134/56 99 12/02/16 23:30 99.0 80 17 141/63 98 12/02/16 22:00 18 12/02/16 20:00 99.4 93 17 169/71 95 12/02/16 16:00 97.0 87 18 165/67 96 I/O 12/02/16 12/02/16 12/02/16 12/03/16 12/03/16 12/03/16 07:00 15:00 23:00 07:00 15:00 23:00 Intake Total 240 ml 600 ml 720 ml 240 ml Output Total 5 ml Balance 235 ml 600 ml 720 ml 240 ml Intake Oral 240 ml 600 ml 720 ml 240 ml Output Drainage Total 5 ml # Voids 2 1 1 1 # Bowel Movements 0 0 0 0 Result Diagram: 12/03/16 0537 12/01/16 0622 Imaging Last Impressions Knee X-Ray 11/30/16 0000 Signed Impressions: Service Date/Time: Wednesday, November 30, 2016 16:10 - CONCLUSION: Status post total left knee arthroplasty. Alignment of the prosthesis. No complicating features are seen. Nancy Landaverde MD Objective Remarks GENERAL: This is a well-nourished, well-developed patient, in no apparent distress. CARDIOVASCULAR: Regular rate and regular rhythm without murmurs, gallops, or rubs. RESPIRATORY: Clear to auscultation. Breath sounds equal bilaterally. No wheezes , rales, or rhonchi. GASTROINTESTINAL: Abdomen soft, non-tender, nondistended. Normal, active bowel sounds MUSCULOSKELETAL:left knee covered with clean dressing. NEURO: Alert & Oriented x4 to person, place, time, situation. Moves all ext x4 Medications and IVs Current Medications Lactated Ringer's 1,000 ml @ 30 mls/hr Q24H IV Last administered on 11/30/16t 12:00; Start 11/30/16 at 12:00 Sodium Chloride (NS 500 ml Inj) 500 ml @ 30 mls/hr [id number] IV ; Start 11/30/16 at 12:00; Stop 12/01/16 at 11:59; Status DC Insulin Human Regular (NovoLIN R INJ) See Protocol Table ... UNSCH X1 PRN SQ SEE PROTOCOL; Start 11/30/16 at 11:45; Stop 12/01/16 at 11:44; Status DC Metoprolol Tartrate 25 mg 25 mg UNSCH X1 PRN PO SEE LABEL COMMENTS; Start 11/30 at 11:45; Stop 12/01/16 at 11:44; Status DC Cefazolin Sodium/ Dextrose (Ancef 2 Gm Premix) 50 ml @ As Directed STK-MED ONCE .ROUTE Last administered on 11/30/16 12:02; Start 11/30/16 at 11:42; Stop at 11:43; Status DC Povidone Iodine 1 applic 1 applic ONCE TOP ; Start 11/30/16 at 12:00; Stop 12/03 at 11:59; Status DC Cefazolin Sodium/ Dextrose (Ancef 2 Gm Premix) 50 ml @ 100 mls/hr IMPREGNATING HELPER IV ; Start 11/30/16 at 12:00; Stop 12/03/16 at 11:59; Status DC Midazolam HCl (Versed Inj) 10 mg STK-MED ONCE .ROUTE Last administered on 12:29; Start 11/30/16 at 12:19; Stop 11/30/16 at 12:20; Status DC Dexamethasone Sodium Phosphate (Decadron Inj) 4 mg STK-MED ONCE .ROUTE Last administered on 11/30/16 14:13; Start 11/30/16 at 12:19; Stop 11/30/16 at 12:20 ; Status DC Gentamicin Sulfate (Gentamicin Inj) 240 mg STK-MED ONCE .ROUTE ; Start 11/30/16 at 12:33; Stop 11/30/16 at 12:34; Status DC Fentanyl Citrate (fentaNYL INJ) 250 mcg STK-MED ONCE .ROUTE ; Start 11/30/16 at 13:13; Stop 11/30/16 at 13:14; Status DC Bupivacaine HCl (Marcaine Pf 0.25% Inj) 30 ml STK-MED ONCE .ROUTE Last administered on 11/30/16 14:23; Start 11/30/16 at 13:51; Stop 11/30/16 at 13:52 ; Status DC Dexamethasone Sodium Phosphate (Decadron Inj) 4 mg STK-MED ONCE .ROUTE ; Start 11/30/16 at 13:53; Stop 11/30/16 at 13:54; Status DC Gentamicin Sulfate (Gentamicin Inj) 240 mg STK-MED ONCE IRRIGATION Last administered on 11/30/16 14:13; Start 11/30/16 at 14:13; Stop 11/30/16 at 14:27 ; Status DC Meperidine HCl (*DEMEROL INJ PERIprocedural ONLY) 25 mg STK-MED ONCE .ROUTE Last administered on 11/30/16 15:57; Start 11/30/16 at 15:57; Stop 11/30/16 at 15:58; Status DC Hydromorphone HCl (*DILAUDID PF INJ PERIprocedural ONLY) 1 mg STK-MED ONCE .ROUTE Last administered on 11/30/16 16:01; Start 11/30/16 at 16:01; Stop at 16:02; Status DC IV Flush (NS Flush) 2 ml UNSCH PRN IVF FLUSH AFTER USING IV ACCESS; Start 11/30 at 16:00 IV Flush 2 ml 2 ml BID IVF Last administered on 12/02/16 22:32; Start at 21:00 Cefazolin Sodium/ Sodium Chloride (Ancef Inj/NS Inj) 100 ml @ 200 mls/hr Q6H IV Last administered on 12/01/16 04:09; Start 11/30/16 at 18:00; Stop at 06:29; Status DC Miscellaneous Information (Post-op Orders (for Pharmacy)) STAT ONCE XX ; Start 11/30/16 at 16:00; Stop 11/30/16 at 16:39; Status DC Enoxaparin Sodium (Lovenox Inj) 40 mg Q24H SQ Last administered on 12/03/16 06 :25; Start 12/01/16 at 04:00 Hydromorphone HCl (Dilaudid Pf Inj) 0.5 mg Q3H PRN IV PUSH PAIN GREATER THAN 7 ; Start 11/30/16 at 16:30 Acetaminophen/ Hydrocodone Bitart ([place] 7.5-325 Mg) 1 tab Q4H PRN PO PAIN SCALE 1 TO 10 Last administered on 12/01/16 22:51; Start 11/30/16 at 16:00 Acetaminophen (Tylenol) 650 mg Q6H PRN PO PAIN LESS THAN 5 ON SCALE; Start at 16:00; Status UNV Multivitamins/ Minerals Therapeutic (Theragran M Tab) 1 tab BID PO Last administered on 12/03/16 09:10; Start 12/01/16 at 21:00; Stop 01/30/17 at 20:59 Ondansetron HCl (Zofran Inj) 4 mg Q6H PRN IVP NAUSEA OR VOMITING Last administered on 12/02/16 11:15; Start 11/30/16 at 16:00 Temazepam (Restoril) 15 mg HS PRN PO SLEEP; Start 11/30/16 at 16:00 Povidone Iodine (Betadine 10% Top Soln) 1 applic UNSCH X1 PRN TOPICAL WOUND CARE; Start 11/30/16 at 16:00; Stop 12/02/16 at 15:59; Status DC Naloxone HCl (Narcan Inj) 0.4 mg UNSCH PRN IV RESPIRATORY RATE LESS THAN 10; Start 11/30/16 at 16:00; Stop 11/30/16 at 16:16; Status DC CHAINER Dosage Infused (Pha) 1 Q8HR .XX ; Start 11/30/16 at 22:00; Status UNV Naloxone HCl (Narcan Inj) 0.4 mg UNSCH PRN IV RESPIRATORY RATE LESS THAN 10; Start 11/30/16 at 16:00 Hydromorphone HCl (Dilaudid CHAINER Inj) 6 mg UNSCH IV Last administered on 18:49; Start 11/30/16 at 16:00 CHAINER Dosage Infused (Pha) 1 Q8HR OTHER Last administered on 12/03/16 06:00; Start 11/30/16 at 22:00 Diphenhydramine HCl (Benadryl) 25 mg Q6H PRN PO ITCHING Last administered on 09:43; Start 11/30/16 at 18:00 Clonidine (Catapres) 0.1 mg DAILY PRN PO BPM; Start 11/30/16 at 18:15; Stop at 19:15; Status DC Colesevelam HCl (Welchol) 3,750 mg DAILY@1000 PO Last administered on 09:14; Start 11/30/16 at 20:00 Levothyroxine Sodium (Synthroid) 25 mcg DAILY@06 PO Last administered on 06:25; Start 12/01/16 at 06:00 Losartan Potassium (Cozaar) 50 mg BID PO Last administered on 12/03/16 09:10; Start 11/30/16 at 21:00 Famotidine (Pepcid) 10 mg BID PO Last administered on 12/03/16 09:10; Start at 21:00 Clonidine (Catapres) 0.1 mg Q8HR PRN PO SBP> 180 OR DBP > 100 Last administered on 12/01/16 23:12; Start 11/30/16 at 22:00 Miscellaneous (Pill Splitter) 1 ea UNSCH PRN OTHER SEE LABEL COMMENTS; Start at 19:15 Metoprolol Succinate (Toprol Xl) 25 mg BID PO Last administered on 12/01/16 19 :07; Start 12/01/16 at 21:00; Stop 12/01/16 at 21:00; Status DC Cyclobenzaprine HCl (Flexeril) 10 mg TID PRN PO PAIN SCALE 1 TO 10 Last administered on 12/02/16 17:50; Start 12/01/16 at 14:00 Diazepam (Valium) 10 mg Q8H PRN PO ANXIETY; Start 12/01/16 at 19:15 Estradiol (Climara 0.1 Mg Patch.7d) 1 patch [place]@09 TD Last administered on 09:43; Start 12/02/16 at 09:00 Miscellaneous Information 1 Q7D TD ; Start 12/09/15 at 09:00 Metoprolol Succinate (Toprol Xl) 25 mg BID@06,18 PO Last administered on 06:25; Start 12/02/16 at 06:00 Propofol (Diprivan 200 Mg/20 ml Inj) 200 mg STK-MED ONCE IV ; Start 11/30/16 at 10:36; Stop 12/03/16 at 10:37; Status DC Neostigmine Methylsulfate (Prostigmin Inj) 3 mg STK-MED ONCE IV ; Start at 10:36; Stop 12/03/16 at 10:37; Status DC Ondansetron HCl 4 mg 4 mg STK-MED ONCE IV PUSH ; Start 11/30/16 at 10:36; Stop 12/03/16 at 10:37; Status DC Lactated Ringer's (Lr 1000 ml Inj) 1,000 ml @ As Directed STK-MED ONCE IV ; Start 11/30/16 at 10:36; Stop 12/03/16 at 10:37; Status DC Nifedipine (Procardia Xl) 60 mg BID PO ; Start 12/03/16 at 21:00; Status UNV A/P Assessment and Plan Status post left knee replacement - managed by Orthopedic service - Pain management - - Physical therapy by primary team HTN - -will resume home meds. - continue to monitor BP and adjust the regimen as needed. anemia- post-op;transfuse with PRBC-monitor H/H. low garde fever- check UA -will monitor temps- Hypothyroidism - continue levothyroxine 25 mcg daily GERD - restart Zantac DVT prop Rosy Johnson MD Dec 03, 2016 12:31
[2016-12-03] MEDS: CYCLOBENZAPRINE HCL 10 MG TAB PO PRN ×2 (12:41→21:02)
[2016-12-03] MEDS: ACETAMINOPHEN/HYDROcodone 325 MG/7.5 MG TAB PO PRN ×3 (12:58→22:20)
[2016-12-03] MEDS: diphenhydrAMINE HCL 25 MG CAP PO PRN ×2 (12:58→22:19)
[2016-12-03] MEDS: METOPROLOL SUCCINATE 50 MG EXTENDED RELEASE TAB PO SCH (17:23)
[2016-12-03] MEDS: NIFEdipine 60 MG SUSTAINED RELEASE TAB PO SCH (21:01)
[2016-12-04] VITALS (8 sets, daily range): BP systolic 110–161; BP diastolic 53–70; PULSE 71–94; RESP 16–18; TEMP 97.7–99.5; O2SAT 93–96
[2016-12-04] MEDS: PCA - TOTAL MG DILAUDID DELIVERED PER SHIFT OTHER SCH ×4 (00:24→22:23)
[2016-12-04] MEDS ORDERED: BISACODYL 10 MG SUPP RECTAL PRN (03:45)
[2016-12-04] MEDS ORDERED: MAGNESIUM HYDROXIDE SUSP 30 ML CUP PO PRN (03:45)
[2016-12-04] MEDS: ENOXAPARIN SODIUM 40 MG/0.4 ML SYRINGE SQ SCH (04:29)
[2016-12-04] MEDS: diphenhydrAMINE HCL 25 MG CAP PO PRN ×3 (04:29→17:14)
[2016-12-04] MEDS: ACETAMINOPHEN/HYDROcodone 325 MG/7.5 MG TAB PO PRN ×4 (04:57→21:01)
[2016-12-04] MEDS: LEVOTHYROXINE SODIUM 25 MCG TAB PO SCH (05:02)
[2016-12-04] MEDS: METOPROLOL SUCCINATE 50 MG EXTENDED RELEASE TAB PO SCH ×2 (05:02→17:13)
[2016-12-04] MEDS ORDERED: POLY17S PO (08:49)
[2016-12-04] MEDS ORDERED: DIAZ10 PO (08:49)
[2016-12-04] MEDS: COLESEVELAM HCL 625 MG TAB PO SCH (09:09)
[2016-12-04] MEDS: POLYETHYLENE GLYCOL 17 GM PKG PO SCH (09:09)
[2016-12-04] MEDS: MULTIVITAMINS/MINERALS THERAPEUTIC TAB PO SCH ×2 (09:10→20:59)
[2016-12-04] MEDS: LOSARTAN 50 MG TAB PO SCH ×2 (09:10→20:58)
[2016-12-04] MEDS: NIFEdipine 60 MG SUSTAINED RELEASE TAB PO SCH ×2 (09:10→20:58)
[2016-12-04] MEDS: BISACODYL EC 5 MG TABEC PO SCH ×2 (09:10→20:58)
[2016-12-04] MEDS: FAMOTIDINE 20 MG TAB PO SCH ×2 (09:10→20:59)
[2016-12-04] MEDS: SODIUM CHLORIDE 0.9% FLUSH 5 ML FLUSH IVF SCH ×2 (09:11→21:00)
[2016-12-04] MEDS ORDERED: HYDR-3580 PO (10:27)
[2016-12-04] MEDS ORDERED: ENOX40P SQ (10:27)
--- NOTE | 2016-12-04 10:32 | HHI.PR ---
Subjective Remarks Follow-up TKA. She has been out of bed. Has not had any bowel movement and passing gas. No nausea or abdominal pain. Discussed with RN. Objective Vitals Vital Signs Date Time Temp Pulse Resp B/P Pulse Ox O2 Delivery O2 Flow Rate FiO2 12/04/16 08:13 97.8 76 18 114/58 94 12/04/16 04:37 98.8 73 16 142/63 95 12/04/16 01:40 99.2 79 16 142/58 96 12/04/16 01:14 99.5 94 16 161/70 94 12/04/16 00:20 99.3 77 16 123/64 95 12/03/16 22:30 98.1 82 16 148/66 96 12/03/16 21:56 97.9 86 16 142/59 97 12/03/16 20:18 99.0 80 17 145/65 93 12/03/16 16:00 98.0 87 18 122/59 94 12/03/16 12:00 99.0 90 18 140/63 92 I/O 12/03/16 12/03/16 12/03/16 12/04/16 12/04/16 12/04/16 07:00 15:00 23:00 07:00 15:00 23:00 Intake Total 960 ml 720 ml 360 ml Balance 960 ml 720 ml 360 ml Intake Oral 960 ml 720 ml 360 ml # Voids 4 2 2 # Bowel Movements 0 0 0 Result Diagram: 12/03/16 0537 12/01/16 0622 Objective Remarks GENERAL: Well-developed, well-nourished in no distress SKIN: Warm and dry. HEAD: Atraumatic. Normocephalic. EYES: Pupils equal and round. No scleral icterus. No injection or drainage. ENT: No nasal bleeding or discharge. Mucous membranes pink and moist. NECK: Trachea midline. No JVD. CARDIOVASCULAR: Regular rate and rhythm. RESPIRATORY: No accessory muscle use. Clear to auscultation. Breath sounds equal bilaterally. GASTROINTESTINAL: Abdomen soft, non-tender, nondistended. MUSCULOSKELETAL: Extremities without clubbing, cyanosis, or edema. No obvious deformities. Dry dressing left knee NEUROLOGICAL: Awake and alert. No obvious cranial nerve deficits. Motor grossly within normal limits. Five out of 5 muscle strength in the arms and legs. Normal speech. PSYCHIATRIC: Appropriate mood and affect; insight and judgment normal. Procedures Left TKA A/P Problem List: (1) HTN (hypertension) ICD Code: I10 Status: Chronic (2) Hypothyroidism ICD Code: E03.9 Status: Chronic (3) GERD (gastroesophageal reflux disease) ICD Code: K21.9 Status: Chronic Assessment and Plan Status post left knee replacement - managed by Orthopedic service - Pain management counseled regarding the narcotic - Physical therapy by primary team HTN - -will resume home meds. - continue to monitor BP and adjust the regimen as needed. anemia- post-op secondary to blood loss; transfused with PRBC-monitor H/H which is pending. low grade fever- check UA -will monitor temps-likely secondary to atelectasis Hypothyroidism - continue levothyroxine 25 mcg daily GERD - restart Zantac Constipation. Continue bowel regimen. Increase activity as tolerated Hyperglycemia. Check A1c with next lab work. Outpatient follow-up DVT prop Lovenox Discharge Planning Stable for discharge Hung Hood MD Dec 04, 2016 10:32
[2016-12-04 11:54] LABS: REVIEW FLAG FINAL
[2016-12-04] MEDS: LACTATED RINGER'S 1000 ML IV SCH (12:00)
--- NOTE | 2016-12-04 13:24 | PD.ORT.PN ---
Subjective Post Op Day #: 4 Subjective Remarks Patient is slowly improving but still painful. Objective Vitals Vital Signs Date Time Temp Pulse Resp B/P Pulse Ox O2 Delivery O2 Flow Rate FiO2 12/04/16 12:02 97.7 71 16 120/60 95 12/04/16 08:13 97.8 76 18 114/58 94 12/04/16 04:37 98.8 73 16 142/63 95 12/04/16 01:40 99.2 79 16 142/58 96 12/04/16 01:14 99.5 94 16 161/70 94 12/04/16 00:20 99.3 77 16 123/64 95 12/03/16 22:30 98.1 82 16 148/66 96 12/03/16 21:56 97.9 86 16 142/59 97 12/03/16 20:18 99.0 80 17 145/65 93 12/03/16 16:00 98.0 87 18 122/59 94 I/O 12/03/16 12/03/16 12/03/16 12/04/16 12/04/16 12/04/16 07:00 15:00 23:00 07:00 15:00 23:00 Intake Total 960 ml 720 ml 360 ml Balance 960 ml 720 ml 360 ml Intake Oral 960 ml 720 ml 360 ml # Voids 4 2 2 # Bowel Movements 0 0 0 Result Diagram: 12/04/16 1120 12/01/16 0622 Imaging Last Impressions Knee X-Ray 11/30/16 0000 Signed Impressions: Service Date/Time: Wednesday, November 30, 2016 16:10 - CONCLUSION: Status post total left knee arthroplasty. Alignment of the prosthesis. No complicating features are seen. Nancy Landaverde MD Objective Remarks Dressing changed- incision looks good with minimal bloody drainage. No calf tenderness. Assessment & Plan Ortho Post Op Day #: 4 Problem List: (1) Total knee replacement status Assessment and Plan Patient stable but painful. Will continue inpatient rehab today and anticipate discharge to rehab facility tomorrow. Nabil Quick MD Dec 04, 2016 13:24
[2016-12-04] MEDS: CYCLOBENZAPRINE HCL 10 MG TAB PO PRN (17:15)
--- NOTE | 2016-12-04 22:33 | MP ---
cc: MADISON BARRON MD DATE OF SURGERY 11/30/16 SURGEON Timothy Barron MD PREOPERATIVE DIAGNOSIS Left knee severe osteoarthritis. POSTOPERATIVE DIAGNOSIS Left knee severe osteoarthritis. PROCEDURE Left knee total knee arthroplasty. PROCEDURE IN DETAIL Informed consent was obtained. The patient was taken to the operating room and placed in supine position on the operating table. She was administered general anesthesia by the anesthesiologist. The patient had discussed pain in her right foot prior to her surgery and the patient was consented for an injection and the right foot was prepped and injected in the painful area utilizing 1 mL of dexamethasone and 2 mL of 0.25% Marcaine without epinephrine. A dressing was placed over the foot. Attention was turned to the left knee. A tourniquet was supplied to the left thigh. The left leg then had a sterile U drape and was prepped with Betadine soap followed by Betadine paint. The patient had been given 1 gram of Ancef prior to initiation of the operative procedure. The draping commenced with sterile down sheet, sterile towels about the tourniquet, split sheet, stockinette was applied over the foot and calf. This was wrapped in a Coban and a laparotomy sheet was placed. A timeout was held and confirmed. At that time, the leg was elevated and the tourniquet inflated to 300 mmHg. The leg was allowed to rest on the operating table. A scalpel was utilized to perform an Insall type anterior knee incision. Skin and subcutaneous tissue was divided. Bleeders were coagulated utilizing a Bovie. A medial parapatellar arthrotomy was performed. The fat pad was excised. Patella was everted. The knee was flexed. A rongeur was utilized to normalize the anatomy and at that time a hole was drilled at the anterior aspect of the femur into the femoral canal. The alignment jig was then placed with the distal femoral cutting block set for removal of 11 mm of bone from the distal femur. The cutting block was placed and the distal femoral cut was performed. At that time, the alignment jig was removed and the sizing jig was placed in the distal femur. This was sized at a size three for the Incuvo. Holes were punched and the 4:1 cutting block for the size three prosthesis was placed. Anterior posterior chamfer cuts were then made. A trial size three femoral component was placed, found to be satisfactory. Holes were drilled at that time for placement of the stabilization tags and the trial implant was removed. The extramedullary tibial alignment jig was placed, set for the transmalleolar access and the proximal tibial cutting block was placed for removal of 2 mm of bone from the medial compartment. This cut was performed. The tibia was sized at a size of three as well. A size three trial tibial placed with an 8-mm insert and the size three femoral trial were placed and stability appeared excellent in both flexion and extension. Alignment appeared satisfactory. The tibial preparation was then performed with the drill and the punch and all trial components were removed. Patella was everted and the patella cutting guide was placed for removal of 9.5 mm of bone from the dorsal aspect of the patella. This cut was made. The patella was sized and a size 35 and the lollipop was placed followed by placement of the holes for the old dome patella. At that time all trial components were removed. The knee was thoroughly irrigated and methacrylate bone cement was mixed. The components were then inserted in the following order: The PFC sigma tibial tray fixed bearing module size 73 was cemented into the proximal tibia. Next, the sigma knee femoral cruciate-retaining cemented size three femoral component was placed. A trial 8 mm insert was placed. Next the 35 mm oval dome patella was cemented into place. Cement was allowed to harden for 15 minutes. The excess bone cement was removed. The PFC sigma tibial insert fixed bearing curved size three, 8 mm thickness, was then impacted into the tibial component. Final reduction was checked and was satisfactory. Stability looked good. At that time, the tourniquet was deflated. Two Hemovac drains were placed. The wounds were closed with #1 Vicryl in the deep tissue followed by 2-0 in the deep subcutaneous tissue, 3-0 plain was placed in the superficial subcutaneous tissue followed by skin precious. Xeroform, 4x4s, Sof-Role and Alessandro wrap and a canvas knee splint were applied to the patient's knee. The patient tolerated the procedure well and was then taken to recovery room in stable condition. At the completion of the procedure, sponge, instrument and needle counts were correct. Estimated blood loss was 150 mL. The total tourniquet time was 56 minutes. MD CHELSIE Wise /4:14 PM /10:19 PM MTDJesus
[2016-12-05 00:21] VITALS: BP 123/53; PULSE 78; RESP 16; TEMP 99.7; O2SAT 94
[2016-12-05] MEDS: ENOXAPARIN SODIUM 40 MG/0.4 ML SYRINGE SQ SCH (04:25)
[2016-12-05] MEDS: LEVOTHYROXINE SODIUM 25 MCG TAB PO SCH (05:41)
[2016-12-05] MEDS: diphenhydrAMINE HCL 25 MG CAP PO PRN (05:42)
[2016-12-05] MEDS: ACETAMINOPHEN/HYDROcodone 325 MG/7.5 MG TAB PO PRN (05:42)
[2016-12-05] MEDS: METOPROLOL SUCCINATE 50 MG EXTENDED RELEASE TAB PO SCH (05:43)
[2016-12-05] MEDS ORDERED: LACTULOSE SYRUP 20 GM/30 ML CUP PO PRN (06:00)
[2016-12-05] MEDS ORDERED: SENN8.6T15 PO (06:04)
[2016-12-05 08:00] VITALS: BP 145/60; PULSE 77; RESP 18; TEMP 98.1; O2SAT 93
[2016-12-05] MEDS: BISACODYL EC 5 MG TABEC PO SCH (08:48)
[2016-12-05] MEDS: POLYETHYLENE GLYCOL 17 GM PKG PO SCH (08:48)
[2016-12-05] MEDS: MULTIVITAMINS/MINERALS THERAPEUTIC TAB PO SCH (08:49)
[2016-12-05] MEDS: NIFEdipine 60 MG SUSTAINED RELEASE TAB PO SCH (08:49)
[2016-12-05] MEDS: FAMOTIDINE 20 MG TAB PO SCH (08:49)
[2016-12-05] MEDS: LOSARTAN 50 MG TAB PO SCH (08:49)
[2016-12-05] MEDS: SODIUM CHLORIDE 0.9% FLUSH 5 ML FLUSH IVF SCH (08:55)
[2016-12-05] MEDS: COLESEVELAM HCL 625 MG TAB PO SCH (08:56)
[2016-12-05] MEDS ORDERED: SENNOSIDES 8.6 MG TAB PO SCH (09:00)
[2016-12-05] MEDS: LACTATED RINGER'S 1000 ML IV SCH (12:00)
--- NOTE | 2016-12-05 12:03 | HHI.PR ---
Subjective Remarks Follow-up TKA. Improving pain. Positive bowel movement. She states she developed transient confusion and jerking movements of the upper extremities after receiving Benadryl. She did not report it to the nursing staff. Objective Vitals Vital Signs Date Time Temp Pulse Resp B/P Pulse Ox O2 Delivery O2 Flow Rate FiO2 12/05/16 08:00 98.1 77 18 145/60 93 12/05/16 00:21 99.7 78 16 123/53 94 12/04/16 20:46 98.3 73 16 110/53 93 12/04/16 16:15 98.2 73 18 127/70 95 12/04/16 12:02 97.7 71 16 120/60 95 I/O 12/04/16 12/04/16 12/04/16 12/05/16 12/05/16 12/05/16 07:00 15:00 23:00 07:00 15:00 23:00 Intake Total 360 ml 1020 ml 360 ml 360 ml Balance 360 ml 1020 ml 360 ml 360 ml Intake Oral 360 ml 1020 ml 360 ml 360 ml # Voids 2 4 2 1 # Bowel Movements 0 1 0 Result Diagram: 12/04/16 1120 12/01/16 0622 Objective Remarks GENERAL: Well-developed, well-nourished in no distress SKIN: Warm and dry. HEAD: Atraumatic. Normocephalic. EYES: Pupils equal and round. No scleral icterus. No injection or drainage. ENT: No nasal bleeding or discharge. Mucous membranes pink and moist. NECK: Trachea midline. No JVD. CARDIOVASCULAR: Regular rate and rhythm. RESPIRATORY: No accessory muscle use. Clear to auscultation. Breath sounds equal bilaterally. GASTROINTESTINAL: Abdomen soft, non-tender, nondistended. MUSCULOSKELETAL: Extremities without clubbing, cyanosis, or edema. No obvious deformities. Dry dressing left knee NEUROLOGICAL: Awake and alert. No obvious cranial nerve deficits. Motor grossly within normal limits. Five out of 5 muscle strength in the arms and legs. Normal speech. PSYCHIATRIC: Appropriate mood and affect; insight and judgment normal. Procedures Left TKA A/P Problem List: (1) HTN (hypertension) ICD Code: I10 Status: Chronic (2) Hypothyroidism ICD Code: E03.9 Status: Chronic (3) GERD (gastroesophageal reflux disease) ICD Code: K21.9 Status: Chronic Assessment and Plan Status post left knee replacement - managed by Orthopedic service - Pain management counseled regarding the narcotic - Physical therapy by primary team HTN - -stable. Will resume home meds. - continue to monitor BP and adjust the regimen as needed. anemia- post-op secondary to blood loss; transfused with PRBC-monitor H/H which is improved low grade fever- check UA -will monitor temps-likely secondary to atelectasis Hypothyroidism - continue levothyroxine 25 mcg daily GERD - restart Zantac Constipation. Continue bowel regimen. Increase activity as tolerated Hyperglycemia. Check A1c with next lab work. Outpatient follow-up Adverse reaction to Benadryl. Patient indicated. DVT prop Lovenox Discharge Planning Stable for discharge Hung Hood MD Dec 05, 2016 12:03
--- NOTE | 2016-12-05 15:30 | HHI.DS ---
Discharge Summary Admission Date Nov 30, 2016 at 10:55 Discharge Date: Dec 05, 2016 Admitting Diagnosis Osteoarthritis Left Knee Diagnosis: (1) Total knee replacement status Diagnosis: Principal Procedures Left Total Knee Arthroplasty Brief History This is a 71 year old female patient with progressive osteoarthritis in the left knee. Admitted for knee replacement. CBC/BMP: 12/04/16 1120 12/01/16 0622 Significant Findings Laboratory Tests Test 12/02/16 12/03/16 12/04/16 15:47 05:37 11:20 Hemoglobin 8.2 GM/DL 7.8 GM/DL 10.4 GM/DL (11.6-15.3) (11.6-15.3) (11.6-15.3) Hematocrit 24.9 % 23.3 % 31.0 % (35.0-46.0) (35.0-46.0) (35.0-46.0) Imaging Last Impressions Knee X-Ray 11/30/16 0000 Signed Impressions: Service Date/Time: Wednesday, November 30, 2016 16:10 - CONCLUSION: Status post total left knee arthroplasty. Alignment of the prosthesis. No complicating features are seen. Nancy Landaverde MD PE at Discharge Dressing changed- incision looks good with minimal bloody drainage. No calf tenderness. Hospital Course Patient was treated with IV antibiotics for 24 hours. She did have rehabilitation with physical therapy and was walking with a walker. Pt Condition on Discharge: Good Discharge Disposition: Discharge to SNF Discharge Instructions Diet Instructions: As Tolerated, No Restrictions Activities You Can Perform: Full Weight Bearing, Shower/Bath Activities to Avoid: Strenuous Activity, Bathing, Driving Nabil Quick MD Dec 05, 2016 15:30
== END 2016-12-05 14:20 | DRG 470 ==
LOC: HSDI 11-30 10:55 → N06B 11-30 17:34
PROVIDERS: ADMIT Orthopaedic Surgery; ATTEND Orthopaedic Surgery
PROC: 3E0T3CZ (ICD-10-PCS; 2016-11-30)
PROC: 0SRD0J9 Replacement of Left Knee Joint with Synthetic Substitute, Cemented, Open Approach (ICD-10-PCS; principal; 2016-11-30 13:39)
PROC: 3E0T3CZ (ICD-10-PCS; 2016-11-30 13:39)
PROC: 30253N1 (ICD-10-PCS; 2016-12-03)
DX: M17.12 Unilateral primary osteoarthritis, left knee (principal); I65.23 Occlusion and stenosis of bilateral carotid arteries; D64.89 Other specified anemias; J98.11 Atelectasis; I10 Essential (primary) hypertension; I70.1 Atherosclerosis of renal artery; K21.9 Gastro-esophageal reflux disease without esophagitis; E03.9 Hypothyroidism, unspecified; M54.9 Dorsalgia, unspecified; M54.2 Cervicalgia; F32.9 Major depressive disorder, single episode, unspecified; Z86.73 Personal history of transient ischemic attack (TIA), and cerebral infarction without residual deficits; Z88.5 Allergy status to narcotic agent; Z72.0 Tobacco use; R41.0 Disorientation, unspecified; K59.00 Constipation, unspecified; R73.9 Hyperglycemia, unspecified; T45.0X5A Adverse effect of antiallergic and antiemetic drugs, initial encounter; Y92.239 Unspecified place in hospital as the place of occurrence of the external cause
CPT/HCPCS: 36430; 73560; 80048; 85014; 85018; 86850; 86890; 86900; 86901; 86920; 94150; C1776; J0690; J1100; J1170; J1580; J1650; J2175; J2250; J2405; J2710; J3010; J7120; P9016; P9021